=== PATIENT | male | born 2000 | race Two or more races ===

== ENCOUNTER 2025-01-27 11:16 | Emergency (ER) | payer MEDICAID, SELFPAY ==
[2025-01-27 11:44] VITALS: BP 147/69; PULSE 74; RESP 18; TEMP 36.8; O2SAT 97; BMI 34.3
--- NOTE | 2025-01-27 11:51 | XR_ITS ---
Examination: Lumbar spine 3 views Technique one AP lateral coned lateral lower lumbar spine 3 views Exam date and time: January 19, 2025 1217 hours INDICATIONS: Sudden onset back pain beginning one week ago. FINDINGS: Adequate alignment lumbar vertebral bodies. No lumbar fracture Mild disc narrowing posteriorly L5-S1 6 mm calcification overlying the right kidney IMPRESSION: Mild disc narrowing L5-S1 Recommend renal sonography follow-up to confirm 6 mm right renal calculus
--- NOTE | 2025-01-27 13:08 | EDNOTE_ITS ---
ED Back Injury Pain RME/HPI General Chief Complaint: Back Pain/Injury Stated Complaint: LOWER BACK INJURY FROM WORK X 6 WKS Time Seen by Provider: 01/27/25 11:33 Source: patient Arrival date/time: 01/27/25 11:16 This is a 24-year-old male with no significant past medical history who presents to the emergency department with complaints of lower back pain. He does report he has been experiencing intermittent back pain for 6 weeks. the patient was referred for evaluation. He has not attempted any interventions or taken any [id number] medications prior to presentation. He denies any associated symptoms, aggravating or modifying factors. There is no radiation or migration of the pain. Mode of arrival: ambulatory Limitations: no limitations Related Data Previous Rx's ?Medication ?Instructions ?Recorded Hydrocodone/Acetaminophen * (NORCO 1 tab PO Q4H PRN pa in #20 tabs 08/11/15 5/325 *) ibuprofen 600 mg tablet 600 mg PO Q6HR PRN PAIN #40 tabs 08/11/15 Hydrocodone/Acetaminophen * (NORCO 1 tab PO Q4H PRN PA IN #14 tabs 08/31/15 5/325 *) ibuprofen 600 mg tablet 1 tab PO Q8HR PRN inflammati on #30 08/31/15 tabs acetaminophen 500 mg tablet 500 mg PO QID PRN fever or pain 07/12/21 (Tylenol Extra Strength) #30 tabs Allergies Allergy/AdvReac Type Severity Reaction Status Date / Time No Known Allergies Allergy Verified 01/27/25 11:19 Review of Systems Review of Systems Systems Reviewed: All systems reviewed, normal except as documented Narrative Review of Systems: Gen: No fever, no chills, no weight loss EYES: No discharge, no visual changes, no pain HEENT: No ear pain, no congestion, no sore throat PULM: No shortness of breath, no cough, no congestion CV: No chest pain, no dyspnea on exertion, no palpitations GI: No nausea, no vomiting, no diarrhea, no pain, no constipation : No frequency, no urgency,? no dysuria Musc/skel: No joint pain, + back pain Skin: No rash? Psyc: No hallucinations, no depression Heme/Lymph: No easy bleeding or bruising tendencies Neuro: No weakness, no headache ED Exam General Limitations: Present no limitations General appearance: Present alert and in no apparent distress Head Head exam: Present atraumatic Eye Eye exam: Present normal appearance, PERRL and EOMI ENT ENT exam: Present normal exam, normal oropharynx and mucous membranes moist Neck Neck exam: Present normal inspection, full ROM and trachea midline Chest Chest inspection: Present normal inspection and symmetric chest wall rise Respiratory Respiratory exam: Present normal lung sounds bilaterally Cardiovascular Cardiovascular exam: Present regular rate, normal rhythm and normal heart sounds Abdominal Exam Abdominal exam: Present soft and normal bowel sounds Extremities Exam Extremities exam: Present normal inspection and full ROM Back Exam Back exam: Present normal inspection, full ROM, CVA tenderness (R), CVA tenderness (L) and muscle spasm Neurological Exam Neurological exam: Present alert, oriented X3 and CN II-XII intact Psychiatric Psychiatric exam: Present normal affect and normal mood Skin Skin exam: Present warm, dry, intact and normal color Course Quality Measures none Orders Category Date Time Status US renal BI Stat Exams 01/27/25 13:07 Completed XR lumbar spine 2-3V Stat Exams 01/27/25 11:51 Completed UA [Urinalysis] Stat Lab 01/27/25 13:44 Completed CYCLObenzaPRINE [Flexeril] Med 01/27/25 11:51 Discontinued 5 mg PO X1 ONE Ketorolac Inj [Toradol Inj] Med 01/27/25 11:51 Discontinued 60 mg IM X1 ONE Vital Signs Vital signs: Vital Signs Temperature 98.2 F 01/27/25 11:44 Pulse Rate 74 01/27/25 11:44 Respiratory Rate 18 01/27/25 11:44 Blood Pressure 147/69 H 01/27/25 11:44 Pulse Oximetry (%) 97 01/27/25 11:44 Oxygen Delivery Method Room Air 01/27/25 11:44 Back Pain / Injury MDM Narrative MDM Narrative:: While in the emergency department, the patient received pain medication with relief of his symptoms. Vital signs remained stable throughout his stay. A lumbar spine X-ray was performed, which demonstrated mild degenerative disc disease. An incidental finding of a 6 mm renal stone was also noted. A renal ultrasound was ordered for further evaluation and confirmed the presence of a 1 mm nonobstructive renal calculus. The patient was also administered Flomax (tamsulosin) during the ED visit. 24-year-old male with lower back pain found to have mild degenerative disc disease on lumbar X-ray and a 10 mm nonobstructive renal calculus confirmed on ultrasound. Symptoms resolved with pain management in the ED. * Pain resolved with medication * Nonobstructive renal stone: likely incidental, managed conservatively * Flomax given to aid stone passage * No red flag symptoms noted * Follow-up with primary care provider for further evaluation and ongoing management Patient data External records reviewed:: [facility] [place] previous records Clinical information provided by:: patient Social determinants that could affect healthcare access:: none Patient has the following chronic illnesses:: no How is presenting disease/condition affected by chronic disease/condition?: no chronic disease Evaluation data The following diagnostics were reviewed and interpreted by me:: radiology exam(s) Lab and/or radiology exams considered but not ordered:: no Interpretation Summary: Examination: Lumbar spine 3 views Technique one AP lateral coned lateral lower lumbar spine 3 views Exam date and time: January 19, 2025 1217 hours INDICATIONS: Sudden onset back pain beginning one week ago. FINDINGS: Adequate alignment lumbar vertebral bodies. No lumbar fracture Mild disc narrowing posteriorly L5-S1 6 mm calcification overlying the right kidney IMPRESSION: Mild disc narrowing L5-S1 Recommend renal sonography follow-up to confirm 6 mm right renal calculus Examination: Retroperitoneal ultrasound, complete Technique: Multiple high resolution grayscale images of the retroperitoneum obtained, including kidneys and bladder. Exam date and time:January 27, 2025 1315 hours INDICATIONS: Worsening flank pain beginning 2 days ago FINDINGS: Right kidney 10.7 cm cortex 2.3 cm 10 mm midpole calculus Left kidney 11.8 cm cortex 2.0 cm Moderate bilateral renal parenchymal scar formation No hydronephrosis Contracted urinary bladder Prostate volume 16 cc no prostate nodules IMPRESSION: 10 mm nonobstructing right renal calculus Medications / Prescriptions Medications or Prescriptions considered but not ordered:: no Medication administrations:: Medication Administration History Discontinued Medications Cyclobenzaprine HCl (Cyclobenzaprine 5 Mg Tablet) 5 mg PO X1 ONE Stop: 01/27/25 11:52 Last Admin: 01/27/25 14:14 Dose: 5 mg Documented By: Ketorolac Tromethamine (Ketorolac Inj 60 Mg/2 Ml Vial) 60 mg IM X1 ONE Stop: 01/27/25 11:52 Last Admin: 01/27/25 14:14 Dose: 60 mg Documented By: All medications administered and effective Consultations Consultation(s) initiated? (list below): No Diagnosis Differential diagnosis back pain/injury: lumbar radiculopathy, sciatica and renal colic Most likely diagnosis given after review of the tests above:: Lumbar back pain, renal lithiasis Admission Indicated Admission indicated?: not indicated Admission Request Was there a request for admission?: No Disposition Plan Disposition Plan: Discharge Discharge Attestation Discharge Attestation: The patient and all family members were given an opportunity to ask questions and understood the discharge instructions. Discharge instructions specifically effects, indications for sooner follow up or return to the emergency department, and the expected course of current diagnosis. Patient condition: Stable Discharge Plan Plan Patient Disposition: HOME (Self Care) Prescriptions/Referrals Prescriptions/Med Rec: No Action ibuprofen 600 MG tablet 600 mg PO Q6HR PRN (Reason: PAIN) Qty: 40 0RF Hydrocodone/Acetaminophen * (NORCO 5/325 *) 1 TAB tablet 1 tab PO Q4H PRN (Reason: pain) Qty: 20 0RF ibuprofen 600 MG tablet 1 tab PO Q8HR PRN (Reason: inflammation) Qty: 30 0RF Hydrocodone/Acetaminophen * (NORCO 5/325 *) 1 TAB tablet 1 tab PO Q4H PRN (Reason: PAIN) Qty: 14 0RF Rx Instructions: FOR PAIN acetaminophen [Tylenol Extra Strength] 500 mg tablet 500 mg PO QID PRN (Reason: fever or pain) Qty: 30 0RF Referrals: Tony Quispe MD [Primary Care Provider] - In 1 week Problem List Clinical Impression: Strain of lumbar region, Renal colic Patient/Caregiver Discharge Instructions Discharge Activity: activity as tolerated Education Materials: ED Back Sprain/Strain, ED Kidney Stone w/ Colic Additional Instructions: Even though your back might be exacerbated by strain. We accidentally found that you have a 10 mm stone in your kidney. Please make sure you follow-up with your primary doctor you might need a urology referral Medication as directed. Increase fluid intake. Return to the emergency department this any worsening symptoms any condition. Print Language: Upper Sorbian Stand Alone Forms: Chen Award Info., Patient Portal Info Letter PA/FLORIAN Supervising Physician PA/FLORIAN Supervising Physician: Dr. Ovalle
[2025-01-27 13:49] LABS: Collection Type, Urine Clean Catch; Squamous Epithelial Cell,Urine 0 /hpf (0-5)
[2025-01-27 13:55] LABS: Bilirubin,Urine Negative (Negative); Blood,Urine Negative (Negative); Clarity,Urine Clear (Clear/Hazy); Color,Urine Yellow (Lt Yel-Yel); Glucose, Urine Negative (Negative); Ketones,Urine Negative (Negative); Leukocyte Esterase,Urine Negative (Negative); Nitrite,Urine Negative (Negative); PH,Urine 6.5 (5.0-7.0); Protein,Urine Trace (Neg - Trace); RBC,Urine 5 /hpf (0-3); Specific Gravity,Urine 1.028 (1.001-1.035); Urobilinogen,Urine Negative mg/dL (0.0-1.0); WBC,Urine 1 /hpf (0-5)
[2025-01-27] MEDS: CYCLObenzaPRINE 5 MG TABLET PO (14:14)
[2025-01-27] MEDS: KETOROLAC INJ 60 MG/2 ML VIAL IM (14:14)
== END 2025-01-27 15:25 | disposition home or self-care (01) ==
PROVIDERS: Nurse Practitioner Primary Care; Emergency Provider Emergency Medicine; PCP Family Medicine
DX: S39.012A Strain of muscle, fascia and tendon of lower back, initial encounter (principal); N20.0 Calculus of kidney; M48.061 Spinal stenosis, lumbar region without neurogenic claudication; M51.360 Other intervertebral disc degeneration, lumbar region with discogenic back pain only; X58.XXXA Exposure to other specified factors, initial encounter; Y99.0 Civilian activity done for income or pay
CPT/HCPCS: 72100; 76770; 81001; 96372; 99284; J1885; A9270

== ENCOUNTER 2025-09-22 10:19 | Emergency (ER) | payer SELFPAY ==
[2025-09-22 10:25] VITALS: BP 137/88; PULSE 91; RESP 18; TEMP 37.1; O2SAT 95; BMI 32.3
--- NOTE | 2025-09-22 10:46 | PD.EDLOWEX ---
Lower Extremity Injury RME/HPI General Chief Complaint: Extremity Injury, Lower Stated Complaint: LEFT THIGH INJURY Time Seen by Provider: 09/22/25 10:28 Source: patient Arrival date/time: 09/22/25 10:19 25-year-old male with no known medical history presents to the emergency room with a chief complaint of tenderness to his left thigh after injuring it while sprinting 2 days Mode of arrival: ambulatory Limitations: no limitations Related Data Previous Rx's ?Medication ?Instructions ?Recorded Hydrocodone/Acetaminophen * (NORCO 1 tab PO Q4H PRN pain #20 tabs 08/11/15 5/325 *) ibuprofen 600 mg tablet 600 mg PO Q6HR PRN PAIN #40 tabs 08/11/15 Hydrocodone/Acetaminophen * (NORCO 1 tab PO Q4H PRN PAIN #14 tabs 08/31/15 5/325 *) ibuprofen 600 mg tablet 1 tab PO Q8HR PRN inflammation #30 08/31/15 tabs acetaminophen 500 mg tablet 500 mg PO QID PRN fever or pain 07/12/21 (Tylenol Extra Strength) #30 tabs cyclobenzaprine 10 mg tablet 10 mg PO TID #14 tabs 09/22/25 Allergies Allergy/AdvReac Type Severity Reaction Status Date / Time No Known Allergies Allergy Verified 09/22/25 10:21 Review of Systems Review of Systems Systems Reviewed: All systems reviewed, normal except as documented Constitutional Constitutional: Reports system reviewed and no additional complaints, except as documented, Denies fatigue, Denies fever(s), Denies headache(s) and Denies weakness Eyes Eyes: Reports system reviewed and no additional complaints, except as documented, Denies blurry vision and Denies change in vision ENT Ears, Nose, Mouth, and Throat: Reports system reviewed and no additional complaints, except as documented, Denies otalgia, Denies headache(s), Denies nasal congestion, Denies throat swelling and Denies vertigo Cardiovascular Cardiovascular: Reports system reviewed and no additional complaints, except as documented, Denies chest pain, Denies dyspnea and Denies dyspnea on exertion Respiratory Respiratory: Reports system reviewed and no additional complaints, except as documented, Denies chest congestion, Denies cough, Denies dyspnea, Denies dyspnea on exertion and Denies wheezing Gastrointestinal Gastrointestinal: Reports system reviewed and no additional complaints, except as documented, Denies abdominal pain, Denies cramping, Denies nausea and Denies vomiting Genitourinary Genitourinary: Reports system reviewed and no additional complaints, except as documented, Denies dysuria and Denies hematuria Musculoskeletal Musculoskeletal: Reports system reviewed and no additional complaints, except as documented, Reports abnormal gait, Denies arthralgias, Denies back pain and Reports muscle weakness Integumentary/Breasts Skin/Breast: Reports system reviewed and no additional complaints, except as documented and Denies wounds Neurologic Neurologic: Reports system reviewed and no additional complaints, except as documented, Reports abnormal gait, Denies confusion, Denies headache(s), Denies lack of coordination, Denies vertigo and Denies weakness Psychiatric Psychiatric: Reports system reviewed and no additional complaints, except as documented, Denies anxiety, Denies confusion, Denies depression, Denies paranoia, Denies suicidal ideation and Denies tactile hallucinations Endocrine Endocrine: Reports system reviewed and no additional complaints, except as documented and Denies fatigue Hematologic/Lymphatic Hematologic/Lymphatic: Reports system reviewed and no additional complaints, except as documented and Denies lymphadenopathy Allergic/Immunologic Allergic/Immunologic: Reports system reviewed and no additional complaints, except as documented, Denies throat swelling, Denies urticaria and Denies wheezing Past Medical History Social History SMOKING STATUS: Current every day smoker ED Exam General Limitations: Present no limitations General appearance: Present alert and in no apparent distress Head Head exam: Present atraumatic Eye Eye exam: Present normal appearance, PERRL and EOMI ENT ENT exam: Present normal exam, normal oropharynx and mucous membranes moist Neck Neck exam: Present normal inspection, full ROM and trachea midline Chest Chest inspection: Present normal inspection and symmetric chest wall rise Respiratory Respiratory exam: Present normal lung sounds bilaterally Cardiovascular Cardiovascular exam: Present regular rate, normal rhythm and normal heart sounds Abdominal Exam Abdominal exam: Present soft and normal bowel sounds Extremities Exam Extremities exam: Present normal inspection and full ROM Back Exam Back exam: Present normal inspection and full ROM Neurological Exam Neurological exam: Present alert, oriented X3 and CN II-XII intact Psychiatric Psychiatric exam: Present normal affect and normal mood Skin Skin exam: Present warm, dry, intact and normal color Course Quality Measures none Orders Category Date Time Status Ketorolac Inj [Toradol Inj] Med 09/22/25 10:40 Discontinued 30 mg IM X1 ONE Vital Signs Vital signs: Vital Signs Temperature 98.7 F 09/22/25 10:25 Pulse Rate 91 11/21/25 10:25 Respiratory Rate 18 09/22/25 10:25 Blood Pressure 137/88 H 09/22/25 10:25 Pulse Oximetry (%) 95 09/22/25 10:25 Oxygen Delivery Method Room Air 09/22/25 10:25 Extremity Injury, Lower MDM Narrative MDM Narrative:: 25-year-old male with no known medical history presents to the emergency room with a chief complaint of tenderness to his left thigh after injuring it while sprinting 2 days Patient is hemodynamically stable and in no apparent distress Physical examination shows tenderness with palpation of the left thigh. The patient had no trauma he did not fall. The patient is able to ambulate but states he feels a strain. Patient has full range of motion and sensation. Toradol shot was given to the patient with significant improvement to his symptoms. Patient was discharged and educated to follow-up with primary care provider in the next 24 to 48 hours and return to the emergency room for any evidence of worsening signs or symptoms Patient data External records reviewed:: [facility] previous records Clinical information provided by:: patient Social determinants that could affect healthcare access:: none Patient has the following chronic illnesses:: No chronic illness How is presenting disease/condition affected by chronic disease/condition?: no chronic disease Evaluation data The following diagnostics were reviewed and interpreted by me:: lab results and radiology exam(s) Lab and/or radiology exams considered but not ordered:: Labs and radiology exams considered and ordered Interpretation Summary: N/A Medications / Prescriptions Medications or Prescriptions considered but not ordered:: Medication given Medication administrations:: Medication Administration History Discontinued Medications Ketorolac Tromethamine (Ketorolac Inj 60 Mg/2 Ml Vial) 30 mg IM X1 ONE Stop: 09/22/25 10:41 Medication given Consultations Consultation(s) initiated? (list below): No Diagnosis Extremity Injury, Lower Differential Diagnosis: other (Muscle strain of left thigh/femur fracture) Most likely diagnosis given after review of the tests above:: Muscle strain of left thigh Admission Indicated Admission indicated?: not indicated Admission Request Was there a request for admission?: No Disposition Plan Disposition Plan: Discharge Discharge Attestation Discharge Attestation: The patient and all family members were given an opportunity to ask questions and understood the discharge instructions. Discharge instructions specifically effects, indications for sooner follow up or return to the emergency department, and the expected course of current diagnosis. Patient condition: Stable Discharge Plan Plan Patient Disposition: HOME (Self Care) Discharge Disposition comment: Stable Prescriptions/Referrals Prescriptions/Med Rec: New cyclobenzaprine 10 mg tablet 10 mg PO TID Qty: 14 0RF No Action ibuprofen 600 MG tablet 600 mg PO Q6HR PRN (Reason: PAIN) Qty: 40 0RF Hydrocodone/Acetaminophen * (NORCO 5/325 *) 1 TAB tablet 1 tab PO Q4H PRN (Reason: pain) Qty: 20 0RF ibuprofen 600 MG tablet 1 tab PO Q8HR PRN (Reason: inflammation) Qty: 30 0RF Hydrocodone/Acetaminophen * (NORCO 5/325 *) 1 TAB tablet 1 tab PO Q4H PRN (Reason: PAIN) Qty: 14 0RF Rx Instructions: FOR PAIN acetaminophen [Tylenol Extra Strength] 500 mg tablet 500 mg PO QID PRN (Reason: fever or pain) Qty: 30 0RF Problem List Clinical Impression: Muscle strain of left thigh Patient/Caregiver Discharge Instructions Education Materials: ED Muscle Strain, Extremity Additional Instructions: Please follow-up with your primary care provider in the next 24 to 48 hours Medication was sent to your pharmacy please pick it up and take it as indicated For any evidence of worsening signs or symptoms return to emergency room immediately Print Language: Greenlandic Stand Alone Forms: Chen Award Info., Work/School Release, Patient Portal Info Letter
== END 2025-09-22 11:26 | disposition home or self-care (01) ==
LOC: SERX 11:11
PROVIDERS: Emergency Provider Nurse Practitioner Family
DX: S76.912A Strain of unspecified muscles, fascia and tendons at thigh level, left thigh, initial encounter (principal); X58.XXXA Exposure to other specified factors, initial encounter
CPT/HCPCS: 99281